=== PATIENT | female | born 1980 | race African-American/Black ===

== ENCOUNTER 2020-03-02 19:09 | Emergency (ER) | payer OTHER, SELFPAY ==
[2020-03-02 19:21] VITALS: BP 126/62; PULSE 90; RESP 16; TEMP 37.4; O2SAT 99
--- NOTE | 2020-03-02 19:22 | ED.GENADULT ---
HPI - General Adult General Chief complaint: Back Pain/Injury Stated complaint: back pain Time Seen by Provider: 03/02/20 19:22 Source: patient Mode of arrival: ambulatory Limitations: no limitations History of Present Illness HPI narrative: 39-year-old female patient [facility] with complaints of low back pain that started today. Patient states she has also had a few day history of increasing urination. Patient states that at one point time she did have a little bit of burning last week but thought it might be a yeast infection and she called her primary doctor's office and they gave her a prescription for fluconazole, 1 tablet states that she took that but continued to have symptoms after the fluconazole treatment. Patient denies or breast-feeding. Patient denies any fevers, nausea, vomiting or diarrhea. Patient is complaining of a little bit of intermittent lower abdominal pain at times. Patient denies any injury to the back that she is aware of Related Data Home Medications Medication Instructions Recorded Confirmed Qvar RediHaler 2 inh INHALATION Q12H 08/31/19 03/02/20 albuterol sulfate 2 puff INHALATION QID PRN 08/31/19 03/02/20 omeprazole magnesium [Prilosec OTC] 20 mg PO BID 08/31/19 03/02/20 cetirizine 10 mg capsule 10 mg PO DAILY 11/13/19 03/02/20 sertraline 50 mg PO DAILY 03/02/20 03/02/20 Allergies Allergy/AdvReac Type Severity Reaction Status Date / Time fluoxetine Allergy Unknown Unknown Verified 11/13/19 09:44 Review of Systems Review of Systems: Narrative: CONSTITUTIONAL: Denies fever, chills, or sweats. EYES: Denies visual changes, redness, or discharge. ENT: Denies rhinorrhea, congestion, sore throat, or otalgia. CARDIOVASCULAR: Denies chest pain, palpitations, or edema. RESPIRATORY: Denies cough or dyspnea. GASTROINTESTINAL: Denies abdominal pain, nausea, vomiting, or diarrhea. GENITOURINARY: Denies dysuria or hematuria. Positive increase in urination SKIN: Denies rash or itching. MUSCULOSKELETAL: Positive low back pain, joint pain, or myalgia. NEUROLOGIC: Denies headache, numbness, or weakness. PSYCHIATRIC: Denies anxiety or depression. [facility] Past Medical History Medical History Asthma GERD (gastroesophageal reflux disease) HTN (hypertension) Kidney stone Morbid obesity Pre-eclampsia Surgical History Surgical History History of elective History of tonsillectomy Hx of breast reduction, elective Family History Family History Father Carcinoma of colon Father Diabetes mellitus Mother Hypertension Other Family history of hypercholesterolemia Social History Social History Smoking status: Never smoker Smoking end date: 09/02/08 Alcohol intake: never Substance use: never Gender identity (if verbalized by the patient): Female Spiritual care concerns: No Comments At the time of my signature I agree with nursing past medical history, surgical, social, and family history. There is no relevant family history pertinent to the presenting complaint. Exam Narrative: Exam Narrative: GENERAL: Well-appearing, well-nourished, and in no acute distress. HEAD: Normocephalic, atraumatic. EYES: PERRLA and EOMI. ENT: Nares clear, no rhinorrhea or epistaxis. Mucous membranes moist. NECK: Supple. No lymphadenopathy CHEST: Clear to auscultation. No respiratory distress. HEART: Regular rate and rhythm. No murmur heard. Normal peripheral pulses. ABDOMEN: Soft, nontender, nondistended, normal active bowel sounds. Patient does have left CVA tenderness on percussion. EXTREMITIES: Normal range of motion. No edema. SKIN: Warm, dry, no rash. NEURO: No focal deficits. Alert and oriented x3. Course Vital Signs Vital signs: Vital Signs Tem
== END 2020-03-02 19:37 | disposition home or self-care (01) ==
PROVIDERS: Emergency Provider Nurse Practitioner Family; PCP Internal Medicine
DX: J45.909 Unspecified asthma, uncomplicated (principal); K21.9 Gastro-esophageal reflux disease without esophagitis; I10 Essential (primary) hypertension; Z87.442 Personal history of urinary calculi; E66.01 Morbid (severe) obesity due to excess calories; Z68.36 Body mass index [BMI] 36.0-36.9, adult; N30.00 Acute cystitis without hematuria
CPT/HCPCS: 81003; 87086; 99213; G0463

== ENCOUNTER 2020-04-25 17:54 | Outpatient (CLI) | payer OTHER, SELFPAY ==
[2020-04-25 18:31] LABS: Alanine Aminotransferase 229 U/L (4-35); Alkaline Phosphatase 241 U/L (38-126); Amylase 78 U/L (30-110); Aspartate Amino Transferase 102 U/L (14-36); Lipase 219 U/L (23-300)
== END 2020-04-25 17:55 | disposition home or self-care (01) ==
PROVIDERS: Visit Provider Surgery
DX: Z01.818 Encounter for other preprocedural examination (principal); K81.9 Cholecystitis, unspecified; K80.20 Calculus of gallbladder without cholecystitis without obstruction; R17 Unspecified jaundice
CPT/HCPCS: 36415; 80076; 82150; 83690; 86850; 86900; 86901

== ENCOUNTER 2020-04-30 01:48 | Outpatient (CLI) | payer OTHER, SELFPAY ==
[2020-04-30 19:29] LABS: SARS-CoV-2 RNA PCR Negative
== END 2020-04-30 01:49 | disposition home or self-care (01) ==
LOC: ANHCOVIDDT 01:48
PROVIDERS: Visit Provider Surgery
DX: Z01.812 Encounter for preprocedural laboratory examination (principal); Z11.59 Encounter for screening for other viral diseases
CPT/HCPCS: 87635; C9803; U0003

== ENCOUNTER 2020-05-03 01:01 | Day surgery (SDC) | payer OTHER, SELFPAY ==
[2020-04-19 14:20] VITALS: BMI 35.0
[2020-05-03] VITALS (14 sets, daily range): BP systolic 109–145; BP diastolic 51–96; PULSE 73–93; RESP 10–21; TEMP 35.9–37.1; O2SAT 97–100
--- NOTE | ~2020-05-03 | XR_ITS ---
XR ERCP DATE: 05/04/2020 11:59 INDICATION: Laparoscopic cholecystectomy on 05/03/2020; choledocholithiasis TECHNIQUE: 8 spot images of the right upper quadrant. 196.8 seconds fluoroscopy time 1.60 mGym2 COMPARISON: 05/03/2020 operative cholangiogram FINDINGS: An endoscope overlies the stomach and duodenum. A device was placed via endoscope into the common bile duct, with contrast material injection, revealing a rounded filling defect compatible wit h common bile duct stone. Recommend correlation with ERCP procedural report. IMPRESSION: Presumed endoscopic removal of common bile duct stone; recommend correlation with ERCP pr ocedure report Reviewed, dictated and finalized at [facility]. Reviewed, dictated and finalized at [facility]. IMPRESSION: Presumed endoscopic removal of common bile duct stone; recommend co rrelation with ERCP procedure report
--- NOTE | ~2020-05-03 | XR_ITS ---
EXAMINATION: XR cholangiogram surg 1st inj DATE: 05/03/2020 11:28 INDICATION: Intraoperative evaluation during laparoscopic cholecystectomy TECHNIQUE: Multiple fluoroscopic images of the right upper quadrant were obtained during intraoperati ve cholangiography. A total of 155 fluoroscopic images were obtained. The amount of fluoroscopy time used during this procedure was 0.4 minutes. COMPARISON: None. FINDINGS: Cannulation of the cystic duct demonstrates filling of a dilated common bile duct with mult iple filling defects at the distal aspect of the duct, the largest measuring approximately 9 mm. Ther e is reflux of contrast into the normal-appearing central intrahepatic biliary tree as well as into t he main pancreatic duct which also appears dilated to up to 6 mm. There appears be a meniscus sign at the confluence of the common bile duct and main pancreatic duct with no contrast extending into the duodenum consistent with a likely distal obstructing stone. IMPRESSION: 1. Choledocholithiasis with a few stones in the distal common bile duct and likely obstructing stone at the ampulla. Reviewed, dictated and finalized at [facility]. IMPRESSION: 1. Choledocholithiasis with a few stones in the distal common bile duct and lik angie obstructing stone at the ampulla.
[2020-05-03] MEDS: ACETAMINOPHEN 500 MG TABLET 1000 MG PO (08:38)
[2020-05-03] MEDS: LACTATED RINGERS 1,000 ML 30 ML IV CONT ×2 (08:40→12:02)
[2020-05-03] MEDS: KETOROLAC 15 MG/ML VIAL (*BKC) IV PUSH (08:48)
--- NOTE | 2020-05-03 09:21 | WPDANESEPPF ---
Anes - Initial Pre Proc Eval Procedure: Operation Date: 05/03/20 10:00 Proposed Procedures p Laparoscopic Cholecystectomy With Possible Intraoperative Cholangiogram - Dutch Simpson DO Date/Time: 05/03/20 09:21 Surgeon: Dutch Simpson DO Pre Op Diagnosis: symptomatic cholelithiasis Patient Data Age: 40 Gender: F Height: 5 ft 3 in Weight: 89.81 kg Allergies Allergy/AdvReac Type Severity Reaction Status Date / Time fluoxetine Allergy Unknown HIVES, Verified 05/03/20 08:55 SWELLING Home Medications Medication Instructions Recorded Confirmed Type Qvar RediHaler 2 inh INHALATION Q12H PRN 08/31/19 05/03/20 History albuterol sulfate 2 puff INHALATION QID PRN 08/31/19 05/03/20 History omeprazole magnesium [Prilosec OTC] 20 mg PO BID PRN 08/31/19 05/03/20 History cetirizine 10 mg capsule 10 mg PO DAILY 11/13/19 05/03/20 History sertraline 50 mg PO DAILY 03/02/20 05/03/20 History albuterol sulfate 2.5 mg INHALATION DIRECTED PRN 04/19/20 05/03/20 History amoxicillin 500 mg PO QID 04/19/20 04/19/20 History Patient hx anesthesia problems: none Family hx anesthesia problems: none PMFSH Past Medical History Medical History Asthma GERD (gastroesophageal reflux disease) HTN (hypertension) Kidney stone Morbid obesity Pre-eclampsia Surgical History Surgical History History of elective History of tonsillectomy Hx of breast reduction, elective Family History Family History Father Carcinoma of colon Father Diabetes mellitus Mother Hypertension Other Family history of hypercholesterolemia Social History Social History Smoking status: Never smoker Smoking end date: 09/02/08 Alcohol intake: never Substance use: never Gender identity (if verbalized by the patient): Female Spiritual care concerns: No Anes - Eval Final PreProcedure Day of Procedure 05/03/20 09:21 Patient weight: obese Heart: regular rate and rhythm Lungs: clear to auscultation Airway: Mallampati scale class 1 Neurological: alert and oriented Last oral intake: >/= 8 hours ASA classification: II Emergent: no Anesthetic plan: proceed Anesthesia type and monitoring: general ETT and standard monitoring Informed Consent: The patient's anesthetic plan and its attendant risks and benefits were discussed with the patient/family/POA. Questions were solicited and answers provided to the satisfaction of the patient/family/POA.
--- NOTE | 2020-05-03 10:06 | PM.IMHP ---
H&P: HPI History of Present Illness Date/Time: 05/03/20 10:06 Chief complaint: symptomatic cholelithiasis Narrative: Cayden Curiel is a 40 year old female who presents with recurrent epidsodes of abdominal pain. She was previously found to have evidence of gallstones. She also intermittently experiences jaundice and liver enzymes have been elevated. Review of Systems Review of Systems: All systems reviewed & are unremarkable except as noted in HPI and below Constitutional: Constitutional: Denies chills, Denies fever(s), Denies headache(s) and Denies weight loss Eyes: Eyes: Denies change in vision ENT: Denies dizziness, Denies headache(s), Denies neck mass and Denies throat swelling Cardiovascular: Cardiovascular: Denies chest pain, Denies lightheadedness and Denies dyspnea Respiratory: Respiratory: Denies cough, Denies dyspnea and Denies wheezing Gastrointestinal: Gastrointestinal: Denies abdominal pain, Denies change in bowel habits, Denies nausea and Denies vomiting Genitourinary: Genitourinary: Denies hematuria and Denies dysuria Musculoskeletal: Musculoskeletal: Reports as per HPI Integumentary/Breasts: Skin/Breast: Reports as per HPI Neurologic: Denies dizziness and Denies headache(s) Allergic/Immunologic: Allergic/Immunologic: Denies throat swelling and Denies wheezing PMFSH Past Medical History Medical History Asthma GERD (gastroesophageal reflux disease) HTN (hypertension) Kidney stone Morbid obesity Pre-eclampsia Surgical History Surgical History History of elective History of tonsillectomy Hx of breast reduction, elective Family History Family History Father Carcinoma of colon Father Diabetes mellitus Mother Hypertension Other Family history of hypercholesterolemia Social History Social History Smoking status: Never smoker Smoking end date: 09/02/08 Alcohol intake: never Substance use: never Gender identity (if verbalized by the patient): Female Spiritual care concerns: No Meds Home Medications and Allergies Home Medications Medication Instructions Recorded Confirmed Type Qvar RediHaler 2 inh INHALATION Q12H PRN 08/31/19 05/03/20 History albuterol sulfate 2 puff INHALATION QID PRN 08/31/19 05/03/20 History omeprazole magnesium [Prilosec OTC] 20 mg PO BID PRN 08/31/19 05/03/20 History cetirizine 10 mg capsule 10 mg PO DAILY 11/13/19 05/03/20 History sertraline 50 mg PO DAILY 03/02/20 05/03/20 History albuterol sulfate 2.5 mg INHALATION DIRECTED PRN 04/19/20 05/03/20 History amoxicillin 500 mg PO QID 04/19/20 04/19/20 History Allergies Allergy/AdvReac Type Severity Reaction Status Date / Time fluoxetine Allergy Unknown HIVES, Verified 05/03/20 08:55 SWELLING Vital Signs Vital Signs - 24 hr 05/03/20 08:20 Temperature 36.7 C Pulse Rate 79 Respiratory Rate 20 Blood Pressure 124/79 Pulse Oximetry 98 Exam Const: General: no acute distress and alert Orientation/consciousness: patient oriented x3 HENMT: Head: normocephalic and atraumatic Ears: hearing grossly normal bilaterally General nose exam: Normal nares present Mouth: Yes Normal oral and palatal mucosa present Eyes: Periorbital: periorbital findings normal Sclera: sclerae normal EOM: EOMs intact bilaterally Neck: Neck: normal visual inspection, no lymphadenopathy and trachea midline Chest: Chest palpation & inspection: normal inspection of the chest Resp: Effort & Inspection: normal respiratory effort Auscultation: clear to auscultation bilaterally Cardio: Jugular venous distension: no JVD Rate: regular rate Rhythm: regular rhythm Heart sounds: S1 normal heart sound present and S2 normal heart sound present Peripheral pulses: Peripher
--- NOTE | 2020-05-03 10:08 | WPDHPUPDATE1 ---
History and Physical Update Update Date/Time: 05/03/20 10:08 History and Physical has been reviewed, including an updated exam of the patient. There are NO changes in the patient's condition. Risks, benefits, and alternatives have been discussed and questions answered. Patient agrees to proceed with procedure.
[2020-05-03] MEDS: ceFAZolin 2 GM/D5W 50 ML 2 GM/50 ML BAG IVPB (10:22)
[2020-05-03] MEDS: BUPIVACAINE/EPINEPHRINE 0.5% 30 ML VIAL INFILTRATE (10:59)
--- NOTE | 2020-05-03 12:09 | PM.PROC ---
Procedure Note - Detailed Date of procedure: 05/03/20 Pre-op diagnosis: symptomatic cholelithiasis, jaundice Post-op diagnosis: other ( Choledocholithiasis) Procedure performed: Laparoscopic Cholecystectomy with intraoperative cholangiogram Description of procedure: Procedure as well as risks, benefits, and alternatives were discussed with patient. Written consent was obtained and placed in chart prior to procedure. The patient was brought back to surgical suite. Patient was placed in supine position on operating table. Time-out was done to confirm patient and procedure. Patient was then intubated by the anesthesia department. Abdomen was prepped and draped in sterile fashion using chlorhexidine prep. 0.5% bupivacaine with epinephrine was infiltrated at each site of incision. A 5 millimeter incision was made near the umbilicus, and a 5 millimeter Optiview trocar was advanced through the abdominal layers under direct visualization. Once inside the abdominal cavity, carbon dioxide was insufflated to create a pneumoperitoneum. The camera was inserted and the abdomen was inspected. No immediate abnormalities were identified. The patient was placed in reverse Trendelenburg position and rotated slightly to the left. An 11 millimeter incision was made in the subxiphoid region, and an 11 millimeter trocar was inserted under direct visualization. Two 5 millimeter incisions were made in the right upper quadrant, and two 5 millimeter trocars were inserted under direct visualization. The gallbladder was identified and grasped at the fundus and retracted superiorly. It was then grasped at the infundibulum retracted laterally. Careful dissection around the neck of the gallbladder was performed using blunt dissection with a [place] grasper and hook electrocautery. The cystic duct was identified, and a window was created behind it. The cystic artery was also identified and a window was created behind it. The critical view of safety was identified, visualizing the cystic duct running directly into the neck of the gallbladder, and the cystic artery running directly into the wall of the gallbladder. A 5 mm Endoclip web systems developer was used to place 2 clips proximally and 1 clip distally on the cystic artery and then it was transected using endoscopic scissors. The Alvarenga clamp was placed across the neck of the gallbladder and the Alvarenga cholangiocatheter was advanced into the distal neck of the gallbladder. Bile was able to be aspirated and the catheter flushed with saline with ease. The patient was flattened out in bed and fluoroscopy was used to obtain a cholangiogram with Omnipaque contrast. The images were sent to the radiologist for interpretation. The patient was placed back up in reverse Trendelenburg position. The cystic duct was indurated and dilated, and a 5 mm clip web systems developer was too small to come completely across the cystic duct. The decision was made to transect the cystic duct near the neck of the gallbladder using endoscopic scissors. An 0 Vicryl endoloop was then placed across the cystic duct and this was a ligated in this fashion. Once safely away from the olga hepatitis, the gallbladder was dissected free from the liver bed using hook electrocautery. Hemostasis was achieved along the way. The gallbladder was removed completely and then removed through the subxiphoid port. The liver bed was then inspected. Hemostasis appeared adequate, and our clips appeared secure. The area was gently irrigated with sterile saline. No other abnormalities were seen. The patient was flattened out in bed, and 1 final inspection was made around the abdominal cavity. The subxiphoid port was removed, and a Real Héctor cone was used to approximate the fascia with an 0-Vicryl simple interrupted suture. The remaining ports were then removed under direct visualization, the camera was removed, and the pneumoperitoneum was released. The skin of the incisions was approximated using 4-0
--- NOTE | 2020-05-03 13:25 | SUR.PHASEI ---
05/03/20 1244- [facility] FAXED. 1300- FLOOR CALLED. RN UNAVAILABLE FOR REPORT. 05/04/20 1320- FLOOR CALLED. PLACED ON HOLD. NO RN AVAILABLE.
--- NOTE | 2020-05-03 14:08 | ADMGEN ---
This patient, Cayden Curiel, was admitted to Medical Room 261-01. Patient/family oriented to hospital policies and general routines including ID bracelet, bed and alarms, visiting hours, pain management, procedures, bathroom and other care routines, personal items, smoking policy, room service/diet, and visiting hours. Valuables list has been completed. Information on how to activate the Rapid Response Team has been discussed. Patient/Family are encouraged to report perceived risks to care and to ask questions if they do not understand what they are told or what they should do.
[2020-05-03] MEDS: ACETAMINOPHEN 500 MG TABLET PO (15:00)
[2020-05-03] MEDS: LACTATED RINGERS 1,000 ML 100 ML IV CONT (15:07)
--- NOTE | 2020-05-03 16:27 | WPDGICN ---
Assessment and Plan Assessment and plan (1) Symptomatic cholelithiasis: Code(s): K80.20 - Calculus of gallbladder without cholecystitis without obstruction Status: Acute Assessment and Plan: lap julee today, IOC showed stones in distal stone. ERCP tomorrow, she is agreeable to proceed (2) Elevated liver enzymes: Code(s): R74.8 - Abnormal levels of other serum enzymes Status: Acute Assessment and Plan: from symptomatic cholelithiasis and choledocholithiasis ercp tomorrow (3) HTN (hypertension): Code(s): I10 - Essential (primary) hypertension Status: Acute GI Consult Note Consult date/time: 05/03/20 16:27 Reason for consult: choledocholithiasis by IOC HPI: Cayden Curiel is a 40 year old female with history of intermittent moderate abdominal pain for over a year with nausea. She initially had symptoms in August 2019 when she was , also had elevated liver enzymes, ultrasound showed cholelithiasis and Dr Ochoa performed lap julee today, IOC showed Choledocholithiasis with a few stones in the distal common bile duct and likely obstructing stone at the ampulla. She is recovering from surgery and is resting comfortable. Transaminases 1 week ago 100-200. normal bili. Review of Systems Constitutional: Constitutional: Denies headache(s) and Denies weakness Eyes: Eyes: Denies blurry vision ENT: Reports Normal hearing present, Denies headache(s) and Denies neck pain Cardiovascular: Cardiovascular: Denies chest pain and Denies dyspnea Respiratory: Respiratory: Denies dyspnea Gastrointestinal: Gastrointestinal: Reports no additional gastrointestinal complaints Genitourinary: Genitourinary: Denies dysuria Musculoskeletal: Musculoskeletal: Denies neck pain Integumentary/Breasts: Skin/Breast: Denies dry skin Neurologic: Reports Normal hearing present, Denies headache(s) and Denies weakness Psychiatric: Psychiatric: Denies anxiety Endocrine: Endocrine: Denies change in body appearance Hematologic/Lymphatic: Hematologic/Lymphatic: Denies easy bleeding Allergic/Immunologic: Allergic/Immunologic: Denies urticaria PMFSH Past Medical History Medical History (Updated 05/03/20 @ 16:30 by Vel Guajardo MD) Asthma Elevated liver enzymes GERD (gastroesophageal reflux disease) HTN (hypertension) Kidney stone Morbid obesity Pre-eclampsia Surgical History Surgical History History of elective History of tonsillectomy Hx of breast reduction, elective Family History Family History Father Carcinoma of colon Father Diabetes mellitus Mother Hypertension Other Family history of hypercholesterolemia Social History Social History Smoking status: Never smoker Smoking end date: 09/02/08 Alcohol intake: never Substance use: never Gender identity (if verbalized by the patient): Female Spiritual care concerns: No Meds Home Medications and Allergies Home Medications Medication Instructions Recorded Confirmed Type Qvar RediHaler 2 inh INHALATION Q12H PRN 08/31/19 05/03/20 History albuterol sulfate 2 puff INHALATION QID PRN 08/31/19 05/03/20 History cetirizine 10 mg capsule 10 mg PO DAILY 11/13/19 05/03/20 History sertraline 50 mg PO DAILY 03/02/20 05/03/20 History albuterol sulfate 2.5 mg INHALATION DIRECTED PRN 04/19/20 05/03/20 History Allergies Allergy/AdvReac Type Severity Reaction Status Date / Time fluoxetine Allergy Unknown HIVES, Verified 05/03/20 08:55 SWELLING Vital Signs Vital Signs - 24 hr 05/03/20 08:20 05/03/20 12:02 05/03/20 12:15 Temperature 98.0 F 98.8 F Pulse Rate 79 78 93 Respiratory Rate 20 21 H 12 Blood Pressure 124/79 109/51 L 117/60 Pulse Oximetry 98 98 99 05/03/20 12:30 05/03/20 12:45 05/03/20
[2020-05-03] MEDS: traZODone HCL 50 MG TABLET PO (22:32)
[2020-05-04] VITALS (12 sets, daily range): BP systolic 115–148; BP diastolic 68–88; PULSE 71–108; RESP 11–181; TEMP 36.1–36.6; O2SAT 98–100
[2020-05-04 05:47] LABS: Hematocrit 35.6 % (37.0-47.0); Mean Corpuscular HGB Conc 30.9 g/dl (32-36); Mean Corpuscular Hemoglobin 26.6 pg (26-34); Mean Platelet Volume 11.6 fl (7.4-10.4); Platelet Count Result 279 k/mm3 (150-375); Red Blood Count 4.14 M/mm3 (4.2-5.4); Red Cell Distribution Width 15.1 % (11.5-14.5); White Blood Count 8.6 K/mm3 (4.5-10.0)
[2020-05-04 06:04] LABS: Alanine Aminotransferase 206 U/L (4-35); Albumin Level 3.6 g/dL (3.5-5.1); Alkaline Phosphatase 360 U/L (38-126); Anion Gap 3 mmol/L (8-16); Aspartate Amino Transferase 323 U/L (14-36); Bilirubin,Total 2.5 mg/dL (0.2-1.3); Blood Urea Nitrogen 6 mg/dL (7-17); Calcium 8.6 mg/dL (8.4-10.2); Carbon Dioxide 29 mmol/L (22-30); Chloride 105 mmol/L (98-107); Estimated CRCL calculation 87 ml/min; Estimated Glomerular Filt Rate > 60; Glucose 113 mg/dL (65-105); Potassium 3.9 mmol/L (3.4-5.0); Sodium 137 mmol/L (137-145)
--- NOTE | 2020-05-04 06:23 | PC.NURSE ---
Pt refused ice pack at this time.
--- NOTE | 2020-05-04 07:45 | WPDANESPN ---
Anes - Prog Note Post-Op Date/Time: 05/04/20 07:45 Cardiovascular status: normal Respiratory status: normal Airway patency: baseline Mental status: baseline Post-Op hydration status: normal Vital Signs: Last Vital Signs Temp 97.2 F L 05/04/20 06:00 Pulse 72 05/04/20 06:00 Resp 18 05/04/20 06:00 BP 130/68 05/04/20 06:00 Pulse Ox 100 05/04/20 06:00 I/O: Intake & Output 05/03/20 05/03/20 05/04/20 15:59 23:59 07:59 Intake Total 150 1200 1000 Output Total 300 450 Balance 150 900 550 Laboratory Tests 05/04/20 05:31 05/04/20 05:31 05/04/20 05/04/20 05:31 05:31 WBC 8.6 RBC 4.14 L Hgb 11.0 L Hct 35.6 L MCV 86.0 MCH 26.6 MCHC 30.9 L RDW 15.1 H Plt Count 279 MPV 11.6 H Sodium 137 Potassium 3.9 Chloride 105 Carbon Dioxide 29 Anion Gap 3 L BUN 6 L D Creatinine 0.80 Estim Creat Clear Calc 87 Estimated GFR > 60 Glucose 113 H Calcium 8.6 Total Bilirubin 2.5 H AST 323 H ALT 206 H Alkaline Phosphatase 360 H Total Protein 7.0 Albumin 3.6 Post-procedural complaints: none Patient Feedback: Patient satisfied with anesthetic care.
[2020-05-04] MEDS: ONDANSETRON INJ 4 MG/2 ML VIAL IV PUSH (09:32)
--- NOTE | 2020-05-04 10:37 | P.PNAN_ITS ---
Anes - Eval Final PreProcedure Day of Procedure 05/04/20 10:37 Patient weight: obese Heart: regular rate and rhythm Lungs: clear to auscultation Airway: Mallampati scale class 1 Neurological: alert and oriented Last oral intake: >/= 8 hours ASA classification: II Emergent: no Anesthetic plan: proceed Anesthesia type and monitoring: general ETT and standard monitoring Informed Consent: The patient's anesthetic plan and its attendant risks and bene fits were discussed with the patient/family/POA. Questions were solicited and answers provided to the satisfaction of the patient/family/POA.
--- NOTE | 2020-05-04 10:40 | PC.NURSE ---
Patient to surgery via stretcher with GI lab staff. Consent on front of chart.
[2020-05-04] MEDS: LACTATED RINGERS 1,000 ML 150 ML IV CONT (10:45)
[2020-05-04] MEDS: INDOMETHACIN 50 MG SUPP.RECT 100 MG RECTAL (11:17)
--- NOTE | 2020-05-04 13:00 | PC.NURSE ---
Patient returned from ERCP via stretcher with GI lab staff. Settled into room. No c/o pain. No distress noted. Given ice water and full liquid tray ordered for patient.
--- NOTE | 2020-05-04 14:06 | PM.DS ---
DS: Admitting Diagnosis Admitting Diagnosis Admitting Diagnosis: symptomatic cholelithiasis, jaundice DS: Discharge Diagnosis Discharge Diagnosis (1) Calculus of gallbladder and bile duct with chronic cholecystitis with obstruction: Code(s): K80.65 - Calculus of gallbladder and bile duct with chronic cholecystitis with obstruction Status: Acute (2) Elevated liver enzymes: Code(s): R74.8 - Abnormal levels of other serum enzymes Status: Acute (3) HTN (hypertension): Qualifiers: Hypertension type: essential hypertension Qualified Code(s): I10 - Essential (primary) hypertension Code(s): I10 - Essential (primary) hypertension Status: Acute DS: Summary Hospital Course Reason for hospitalization: Chronic cholecystitis with choledocholithiasis Hospital Course: This is a 40-year-old woman who presented with recurrent episodes of upper abdominal pain and jaundice. She presented for laparoscopic cholecystectomy with intraoperative cholangiogram electively on 05/03/2020. She was noted to have some elevated liver enzymes with her preoperative labs. Intraoperative cholangiogram showed evidence of a filling defect within the distal common bile duct and no contrast entering into the duodenum. She was then admitted for further treatment of the common bowel duct stone. Dr. Seymour was consulted and he performed an ERCP on 05/04/2020. Procedure was successful at removing the common bile duct stone. Her diet was then advanced as tolerated. Her pain was well controlled and she was remaining hemodynamically stable. Once she was tolerating a low-fat diet she was discharged home. Status at Discharge Functional status at discharge: independent ambulation Overall status at discharge: patient is progressing back to baseline Time Spent with Patient Time attestation: Total time spent providing and/or coordinating discharge services: Time spent: Less than 30 minutes Exam Const: General: no acute distress Limitations: no limitations Neck: Neck: supple and no JVD Resp: Effort & Inspection: normal respiratory effort Auscultation: clear to auscultation bilaterally Cardio: Rate: regular rate Rhythm: regular rhythm GI: GI Palp: Yes Soft to palpation and Yes Tenderness to palpation present (GI) ( Incisional) Percussion: Yes normal to percussion Auscultation: normal bowel sounds Other: incisions healing well with glue intact Skin: General skin exam: normal color Neuro: General: gait normal Extrem: General: normal to inspection Psych: Appearance: grossly normal Mental Status: mental status grossly normal Speech and movement: Normal speech and movement present DS: Data Data Completed and Pending Completed studies during hospitalization: Pending at discharge 05/03/20 10:54 Surgical [PTH] Routine Labs on day of discharge: Labs from last 24 hours 05/04/20 05/04/20 05:31 05:31 WBC 8.6 RBC 4.14 L Hgb 11.0 L Hct 35.6 L MCV 86.0 MCH 26.6 MCHC 30.9 L RDW 15.1 H Plt Count 279 MPV 11.6 H Sodium 137 Potassium 3.9 Chloride 105 Carbon Dioxide 29 Anion Gap 3 L BUN 6 L D Creatinine 0.80 Estim Creat Clear Calc 87 Estimated GFR > 60 Glucose 113 H Calcium 8.6 Total Bilirubin 2.5 H AST 323 H ALT 206 H Alkaline Phosphatase 360 H Total Protein 7.0 Albumin 3.6 Imaging Radiologist's impression: ITS Impressions Cholangiogram,Operative 05/03/20 11:46 IMPRESSION: 1. Choledocholithiasis with a few stones in the distal common bile duct and likely obstructing stone at the ampulla. Discharge Plan Discharge Consulting providers: Vel Guajardo Patient Disposition: Home, Self-Care Discharge Instructions: DISCHARGE INSTRUCTION SHEET FOR HERNIA, GALLBLADDER AND APPENDIX SURGERIES DR. ROBERSON PATIENT TO TAKE HOME 1. May shower, no soaking in bath x 2weeks. 2. Call office for: Wound incre
[2020-05-04] MEDS: SERTRALINE HCL 50 MG TABLET PO (14:55)
[2020-05-04] MEDS: LORATADINE 10 MG TABLET PO (14:55)
== END 2020-05-04 17:37 | disposition home or self-care (01) ==
LOC: ANHSURGERY 08:05 → ANH2MED 14:18
PROVIDERS: Internal Medicine Gastroenterology; Visit Provider Surgery
PROC: 0FT44ZZ Resection of Gallbladder, Percutaneous Endoscopic Approach (ICD-10-PCS; CPT 47562; principal; 2020-05-03 10:00)
PROC: (CPT 43260; principal; 2020-05-04 11:30)
DX: K80.65 Calculus of gallbladder and bile duct with chronic cholecystitis with obstruction (principal); R17 Unspecified jaundice; K21.9 Gastro-esophageal reflux disease without esophagitis; I10 Essential (primary) hypertension; E66.01 Morbid (severe) obesity due to excess calories; Z68.35 Body mass index [BMI] 35.0-35.9, adult; J45.909 Unspecified asthma, uncomplicated; R74.8 Abnormal levels of other serum enzymes
CPT/HCPCS: 47563; 43262; 36415; 74300; 74329; 80053; 80076; 82150; 83690; 85027; 86850; 86900; 86901; 87635; 88304; A9270; C9803; J0690; J1100; J1885; J2250; J2370; J2405; J2704; J2710; J3010; J7030; J7120; Q9966; U0003